=== PATIENT | female | born 1975 | race Two or more races ===

== ENCOUNTER 2024-01-17 04:38 | Day surgery (SDC) | payer OTHER ==
[2024-01-13 13:07] VITALS: BMI 27.6
[2024-01-17 12:32] VITALS: TEMP 97.1
[2024-01-17 12:58] VITALS: BP 111/60; PULSE 68; RESP 15
== END 2024-01-17 13:11 | disposition home or self-care (01) ==
LOC: JASU-ENDO 04:38
PROVIDERS: ATTEND Internal Medicine Gastroenterology
PROC: 0DJD8ZZ Inspection of Lower Intestinal Tract, Via Natural or Artificial Opening Endoscopic (ICD-10-PCS; principal; 2024-01-17 11:30)
DX: Z12.11 Encounter for screening for malignant neoplasm of colon (principal); K64.8 Other hemorrhoids
CPT/HCPCS: 81025